=== PATIENT | female | born 1945 | race Caucasian/White ===

== ENCOUNTER 2023-06-08 19:58 | Inpatient (IN) | payer MEDICARE, OTHER, SELFPAY ==
[2023-06-08] VITALS (12 sets, daily range): BP systolic 130–152; BP diastolic 54–90; BMI 32.3
[2023-06-08 17:09] LABS: % Basophils 0.4 % (0-2); % Eosinophils 1.3 % (0-6); % Immature Granulocytes 0.5 % (0-0.5); % Neutrophils 71.8 % (42.2-75.2); Absolute Eosinophils 0.1 10^3/uL (0-0.7); Absolute Immature Granulocytes 0.1 10^3/uL (0-0.05); Absolute Lymphocytes 2.1 10^3/uL (1.2-3.4); Absolute Monocytes 0.8 10^3/uL (0.1-0.6); Hematocrit 41.3 % (37.0-47.0); Hemoglobin 14.1 g/dL (12.0-16.0); Mean Corp Hgb Conc. 34.1 g/dL (33.0-37.0); Mean Corpuscular Hgb 31.4 pg (27.0-31.0); Mean Platelet Volume 10.7 fL (7.4-10.4); Nucleated Red Blood Cells % 0 %; Platelet Count 367 10^3/uL (130-400); Red Blood Cell Count 4.49 10^6/uL (4.20-5.40); Red Cell Dist. Width 12.5 % (11.5-14.5); White Blood Cell Count 11.1 10^3/uL (4.8-10.8)
[2023-06-08 17:18] LABS: Lactic Acid 1.5 mmol/L (0.7-2.0)
[2023-06-08 17:30] LABS: ALT (SGPT) 21 U/L (0-35); AST (SGOT) 28 U/L (14-36); Albumin 4.4 g/dl (3.5-5.0); Alkaline Phosphatase 118 U/L (38-126); Blood Urea Nitrogen 30 mg/dl (7-17); Calcium 9.2 mg/dl (8.4-10.2); Carbon Dioxide 35 mmol/L (22-30); Glucose 114 mg/dl (70-99); Total Bilirubin 0.6 mg/dl (0.2-1.3); Total Protein 7.8 g/dl (6.3-8.2); eGFR 58.75
[2023-06-08 17:31] LABS: NT-proBNP 115 pg/ml; Troponin I < 0.012 ng/ml
[2023-06-08 17:44] LABS: Chloride 93 mmol/L (98-107); Potassium 3.8 mmol/L (3.5-5.1); Sodium 137 mmol/L (135-145)
--- NOTE | 2023-06-08 18:38 | ED.GENMED ---
History of Present Illness
General
Chief Complaint: Breathing Problem
Source: patient, spouse and physician
Exam Limitations: none
Time Seen by Provider: 06/08/23 18:00
Nursing documentation reviewed up to this point in time: agreed with
Travel History
Have you had any contact with someone who has COVID-19?: No
Do you have any symptoms of coronavirus? Fever > 100 degrees, chills, cough, shortness of breath, sore throat, loss of taste or smell, muscle aches, or headache?: No
History of Present Illness
History of Present Illness:
77-year-old female presents emergency department complaining of worsening cough and shortness of breath over the past several days. She is on 4 L oxygen at home.
Past History
Past History
ED Past Medical History: COPD, HTN and Hypercholesterolemia
ED Past Surgical History: Appendectomy
Social History
Tobacco: Former smoker
Alcohol: None
Personal:
Living: with family
Review of Systems
Review of Systems
Allergies reviewed?: Yes
All Other Systems: Not applicable
Constitutional: Reports no symptoms; Denies fever
EENT: Reports no symptoms
Respiratory: Reports cough and trouble breathing
Cardiac: Reports no symptoms
ABD/GI: Reports no symptoms
: Reports no symptoms
Musculoskeletal: Reports no symptoms
Skin: Reports no symptoms
Neurological: Reports no symptoms
Endocrine: Reports no symptoms
Hematologic/Lymphatic: Reports no symptoms
Psychiatric: Reports no symptoms
Phy Exam
Physical Exam
Physical Exam:
Physical Exam
General: Moderate respiratory distress, afebrile
Neck: supple. no meningeal signs. normal posterior pharynx
Heart: s1/s2 regular rate and rhythm, no murmur. equal radial
pulses.
HEENT: Pupils equal round reactive to light, EOMI
Lungs: Decreased breath sounds throughout, wheezing
Abdomen: normal bowel sounds. not tender. no CVAT
Neuro: alert and oriented. no focal neurological deficits cranial nerves II through XII intact
Skin: no rash
Psychiatric: well kept. interactive and cooperative
Extremities: no edema. no calf tenderness. negative homans. good distal pulses
Scores
Heart Failure Risk
Heart Failure Risk Score: Not Applicable
Course
Orders/Labs/Results
Orders:
Orders
06/08/23 16:41
Electrocardiogram (*1) Urgent
Reason for Study: Shortness of Breath
CR Chest - 2 Views Urgent
Comment:
Reason For Exam: SOB
06/08/23 16:42
EKG- Treatment ONCE
06/08/23 16:55
Complete Blood Count/With Diff Urgent
Comprehensive Metabolic Panel Urgent
Lactic Acid Urgent
NT-proBNP Urgent
Troponin I Urgent
Blood Culture Urgent
INDY Source: Blood/Venous
Specimen Description:
Influenza A+B Rapid Molecular Urgent
INDY Source: Nasal Swab
Specimen Description:
06/08/23 18:36
Dexamethasone Sod Phosphate [Decadron] 10 mg IV NOW STA
Ipratropium/Albuterol Sulfate [Duoneb] 3 ml INH R NOW STA
Abnormal Lab Results
06/08/23
16:55
WBC 11.1 H 10^3/uL
(4.8-10.8)
MCH 31.4 H pg
(27.0-31.0)
MPV 10.7 H fL
(7.4-10.4)
Abs Immat Gran (auto) 0.1 H 10^3/uL
(0-0.05)
Absolute Neuts (auto) 8.0 H 10^3/uL
(1.4-6.5)
Absolute Monos (auto) 0.8 H 10^3/uL
(0.1-0.6)
Lymphocytes % 19.0 L %
(20.5-51.1)
Chloride 93 L mmol/L
(98-107)
Carbon Dioxide 35 H mmol/L
(22-30)
BUN 30 H mg/dl
(7-17)
Glucose 114 H mg/dl
(70-99)
06/08/23 16:55
06/08/23 16:55
Vital Signs
Initial and Last Documented VS:
Initial Vital Signs
Temp Pulse Resp BP Pulse Ox
98.3 F 85 20 139/75 88
06/08/23 16:37 06/08/23 16:37 06/08/23 16:37 06/08/23 16:37 06/08/23 16:37
Last Documented Vital Signs
Temp Pulse Resp BP Pulse Ox
98.3 F 85 20 139/75 88
06/08/23 16:37 06/08/23 16:37 06/08/23 16:37 06/08/23 16:37 06/08/23 16:37
MDM/Problems Addressed
Differential Diagnosis Includes:
Pneumonia, COPD exacerbation, bronchitis
MDM/Problems Addressed:
77-year-old female with COPD exacerbation, no signs of pneumonia. Do not suspect PE. Admit to hospitalist. IV Decadron and DuoNeb given.
Chronic conditions affecting care: COPD
Acute Exacerbation and/or Progression of Chronic Illness: COPD
*Radiology
Radiology exam reviewed: radiology read reviewed (Chest x-ray no acute findings)
*Pulse Oximetry
Patient hypoxic: yes
*EKG
Interpreted by ED Provider?: Yes
EKG Intrepretation Date: 06/08/23
EKG Intrepretation Time: 16:47
Interpretation: abnormal
Comparison EKG: no comparison EKG present
Heart Rate: 78
Rate: normal
Rhythm: sinus
[place]: left axis deviation
Interval: normal interval
QRS Pattern: normal QRS
Ischemia: no ischemia
*[employer] Interpretation
Rate: normal
Interpretation: normal
Heart Rate: 75
Rhythm: sinus
*Critical Care Note
Total Time (30-74mins, 75-104mins- exclusive of procedures): Not Applicable
Patient Management
Social determinants of health affecting care: Living situation and Strong social support
Discussion with other providers: Hospitalist
Escalation/DeEscalation of care consider admission/obs:
Admit indicated
ED Attending Note
-
Portions of this chart may have been created with voice recognition software.� Occasional wrong word or��sound alike� substitutions may have occurred due to the inherent limitations of voice recognition software.
Discharge Plan
Departure
Patient Disposition: Admit
Date of Disposition: 06/08/23
Time of Disposition: 18:49
Admit to: Telemetry
Presentation/result/management discussed w/ accepting MD/DO: Hospitalist
Patient with high blood pressure during this ER visit?: Yes
Condition: Fair
Discharge Problem:
Acute exacerbation of chronic obstructive pulmonary disease
Interventions
Interventions:
*Risk Screen - Suicide Last Done: 06/08/23 16:37
*General Assessment Last Done: 06/08/23 16:37
[2023-06-08] MEDS: DUONEB 3 ML INH ×2 (19:15→21:53)
[2023-06-08] MEDS: DECADRON 10 MG IV (19:15)
--- NOTE | 2023-06-08 19:24 | HPS.HSE ---
Family Physician
-
Family Physician: Alex Mallory
Chief Complaint
-
shortness of breath
History of Present Illness
77-year-old female past medical history of COPD on 4 L at baseline, alpha-1 antitrypsin deficiency, hypertension, hypercholesterolemia presenting with worsening productive cough and shortness of breath over the past week. Denies any chest pain.
She denies any fevers or chills. She states that one of her inhalers was recently removed due to overlap with [employer].
She is a former smoker. She drinks 2 to 3 glasses of wine every night but has not had a drink in a few days.
Medical History
Past Medical History
Past Medical History: Reports Other ( COPD on 4 L at baseline, alpha-1 antitrypsin deficiency, hypertension, hypercholesterolemia )
Past Surgical History: Reports None
Social History
Tobacco: Former Smoker
Alcohol: None
Drug: None
Family History
Family History: Not pertinent
Allergies / Home Medications
Allergies reflects when Allergies were last updated in [facility].
Home Medications with original date entered in [facility]
Allergy/Medication List:
Allergies
Allergy/AdvReac Type Severity Reaction Status Date / Time
erythromycin base Allergy Nausea Verified 06/08/23 16:37
Home Medications
albuterol sulfate 90 mcg/actuation aerosol inhaler 2 puff inhalation R Q1 06/08/23
alpha-1 proteinase inhib.(hum) 1 gram/50 mL(2 %) intravenous soln (Glassia) 5.418 g IV TH 06/08/23
budesonide 160 mcg-glycopyr 9 mcg-formot 4.8 mcg/actuation HFA inhaler (Breztri [employer]) 2 inh inhalation R BID 06/08/23
citalopram 20 mg tablet 20 mg PO DAILY 06/08/23
clobetasol 0.05 % lotion 1 applic topical WEEKLY 06/08/23
diphenhydramine HCl 50 mg/50 mL in 0.9 % sodium chloride IV piggyback 50 mg IV TH 06/08/23
donepezil 10 mg tablet 10 mg PO HS 06/08/23
ibuprofen 600 mg tablet 600 mg PO Q8H PRN mild pain 06/08/23
lisinopril 10 mg-hydrochlorothiazide 12.5 mg tablet 1 tab PO DAILY 06/08/23
lorazepam 0.5 mg tablet 0.5 mg PO DAILY PRN anxiety 06/08/23
pantoprazole 40 mg tablet,delayed release 40 mg PO DAILY 06/08/23
paroxetine HCl 20 mg tablet 20 mg PO DAILY 06/08/23
promethazine-DM 6.25 mg-15 mg/5 mL oral syrup 5 ml PO QID PRN cough 06/08/23
simvastatin 40 mg tablet 40 mg PO QPM 06/08/23
Review of Systems
-
History Source: Patient
A 12 point ROS was completed and negative except as noted: Yes
Constitutional: Reports No Symptoms
EENT: Reports No Symptoms
Respiratory: Reports See HPI
Cardiac: Reports No Symptoms
Abdomen/GI: Reports No Symptoms
: Reports No Symptoms
Musculoskeletal: Reports No Symptoms
Skin: Reports No Symptoms
Neurological: Reports No Symptoms
Endocrine: Reports No Symptoms
Hematologic/Lymphatic: Reports No Symptoms
Psych: Reports No Symptoms
Physical Exam
Vital Signs
Vital Signs
Temp Pulse Resp BP Pulse Ox
98.1 F 72 24 142/90 94
06/08/23 19:14 06/08/23 19:14 06/08/23 19:14 06/08/23 19:14 06/08/23 19:14
Physical Exam
General: Well Developed, Well Nourished and No Apparent Distress
HEENT: NormoCephalic, Moist mucous membranes and Atraumatic
Respiratory: Wheezes
Cardiac: S1/S2 and Regular Rhythm; No Murmur or Rub
GI: Soft, Non Tender, Non Distended and Normal Bowel Sounds; No Organomegaly
Rectal: Deferred by Provider
Musculoskeletal: No Clubbing, No Cyanosis and No Edema
Skin: No Rash
Neuro: Nonfocal/grossly intact
Laboratory Results
-
06/08/23 16:55
06/08/23 16:55
Laboratory Results
Lactic Acid 1.5 mmol/L (0.7-2.0) 06/08/23 16:55
Total Bilirubin 0.6 mg/dl (0.2-1.3) 06/08/23 16:55
AST 28 U/L (14-36) 06/08/23 16:55
ALT 21 U/L (0-35) 06/08/23 16:55
Alkaline Phosphatase 118 U/L (38-126) 06/08/23 16:55
Troponin I < 0.012 ng/ml 06/08/23 16:55
Data Reviewed
-
Lab Data: Labs Reviewed by me
Old Records: Reviewed
Impression/Plan
-
IMPRESSION:
PLAN:
# COPD exacerbation
# History of alpha-1 antitrypsin deficiency
# Former smoker
-Chest x-ray negative
-DuoNebs every 6 hours
-Dexamethasone 4 mg every 8 hours
-Doxycycline
-Mucinex as needed
Essential hypertension
-Continue lisinopril/hydrochlorothiazide
Hypercholesterolemia
-Continue statin
Anxiety/depression
-Continue citalopram
-Continue Ativan as needed
Dementia
-Continue donepezil
GERD
-Continue Protonix
Full code
DVT prophylaxis�heparin
Regular diet
[2023-06-08] MEDS: HEPARIN 5000 UNITS SC (21:56)
[2023-06-08] MEDS: MUCINEX 1200 MG PO (22:36)
[2023-06-08] MEDS: VIBRAMYCIN 100 MG PO (22:36)
[2023-06-08] MEDS: SYMBICORT 160/4.5 MCG INHALER INH (23:41)
[2023-06-09] VITALS (23 sets, daily range): BP systolic 83–153; BP diastolic 50–95; BMI 31.2; BMI 31.5
[2023-06-09] MEDS: ARICEPT PO (00:48)
[2023-06-09] MEDS: ATIVAN 0.5 MG PO ×2 (00:49→21:18)
[2023-06-09] MEDS: DECADRON 4 MG IV ×3 (03:48→20:22)
--- NOTE | 2023-06-09 04:20 | PTCARENOTE ---
No acute events overnight. Received patient from the ED on home 4 liters 02.
[2023-06-09] MEDS: DUONEB 3 ML INH ×5 (04:59→19:53)
[2023-06-09] MEDS: SPIRIVA RESPIMAT 2.5 MCG 2 PUFF INH (07:58)
[2023-06-09] MEDS: SYMBICORT 160/4.5 MCG INHALER 2 PUFF INH ×2 (07:58→19:54)
[2023-06-09] MEDS: VIBRAMYCIN 100 MG PO ×2 (09:32→20:22)
[2023-06-09] MEDS: ZESTRIL 10 MG PO (09:32)
[2023-06-09] MEDS: MOTRIN 600 MG PO (09:32)
[2023-06-09] MEDS: ORETIC 12.5 MG PO (09:33)
[2023-06-09] MEDS: MUCINEX 1200 MG PO ×2 (09:34→20:22)
[2023-06-09] MEDS: HEPARIN 5000 UNITS SC ×2 (09:34→20:22)
[2023-06-09] MEDS: CELEXA 20 MG PO (09:34)
[2023-06-09] MEDS: PROTONIX 40 MG PO (09:34)
--- NOTE | 2023-06-09 09:42 | PTCARENOTE ---
Tele alarming sao2 80s- found pt distressed 'help me I can't breathe' pox dropped to 70% coughing continuously- bringing very little phlegm up- increased NC to 6L - RT called- no response to pox placed NRB mask and within 2 minutes pox back up to
100%.
Happened again within 10 minutes and again recovered with NRB mask within a minute.
--- NOTE | 2023-06-09 10:06 | W.PN.HOSP.TC ---
Today's Communication/Plan
-
see A/P
Assessment / Plan
Assessment / Plan
77-year-old female past medical history of COPD on 4 L at baseline, alpha-1 antitrypsin deficiency, hypertension, hypercholesterolemia presented with worsening productive cough and shortness of breath over the past week.� Denied to chest pain,
fevers or chills.� She states that one of her inhalers was recently removed due to overlap with [email or web address].
She is a former smoker.� She drinks 2 to 3 glasses of wine every night but has not had a drink in a few days.
A/P:
# COPD exacerbation
# Acute on chronic hypoxic resp failure
# History of alpha-1 antitrypsin deficiency
# Former smoker
Pt placed on 15L NC, cont O2 support, was on 4L NC at home
Chest x-ray negative
DuoNebs every 6 hours
Dexamethasone 4 mg every 8 hours
Check procal, check COVID and add IV Abx if elevated
Flu is negative
pt was started with Doxycycline, cont for now
Mucinex as needed, added tessalon PRN for cough
Pulm CS
# Essential hypertension
Continue lisinopril/hydrochlorothiazide
Monitor BP
# Hypercholesterolemia
Continue statin
# Anxiety/depression
Continue citalopram
Continue Ativan as needed
# Dementia
Continue donepezil
# GERD
Continue Protonix
Full code
DVT prophylaxis�heparin
Regular diet
DW RN
Anticipated Discharge: > 48 hours
Subjective/Interval History
-
Date of Service: June 09, 2023
Objective Data
-
Vital Signs:
Vital Signs
Temp Pulse Resp BP Pulse Ox
36.5 C 82 18 113/80 91
06/09/23 08:00 06/09/23 08:02 06/09/23 08:02 06/09/23 09:32 06/09/23 08:02
Review of Systems
-
Respiratory: Reports Cough and Trouble Breathing
Physical Exam
-
General: Well Developed, Well Nourished, Comfortable, Respiratory Distress and Conversant (speak in full sentences)
HEENT: Normocephalic, Atraumatic, Nose Appears Normal, Ears Appear Normal and Oxygen (15L NC)
Respiratory: Clear to Auscultation, Wheezes and Non Labored Respirations; Negative Accessory Resp Muscle Use
Cardiac: Regular Rhythm and S1/S2
GI: Soft, Nontender, Nondistended and Normal Bowel Sounds
Skin: Warm and Dry
Neuro: Awake and Alert
Psych: Calm and Intact Judgement/Insight (somewhat)
Data Reviewed
-
Diagnostic Radiology: Image personally visualized and interpreted and Report Reviewed by me
Labs: Labs Reviewed by me
[2023-06-09 11:13] LABS: COVID-19 Antigen Negative (Negative)
[2023-06-09 11:43] LABS: Procalcitonin < 0.05 ng/ml (0.0-0.25)
--- NOTE | 2023-06-09 16:11 | CM ---
Patient with Hx alpha-1 antitrypsin deficiency with Dx COPD exacerbation, Acute on chronic hypoxic resp failure. O2 6L. Receiving IV Decadron.
Met with patient and spoke with Zain by phone;
the patient resides with her and their dog in a split level house, with 4 [address] and 6 steps to bedroom.
The patient is assisted with ADLs by her for showering, and she stays in her pajamas all day.
She is ambulatory for short distances without using an assistive device - patient says walking is limited by SOB.
Patient is essentially homebound however takes her to [facility] in [place] every for a [facility].
DME - RW, home O2 through [employer]: concentrator, portable tank on wheels, POC shoulder tank
No prior VN or SNF.
PCP - Alex Mallory
Pharmacy - [facility]
The patient has 4 children who live nearby. She has no POA.
Patient requesting w/c - if MD agrees order through [employer] [facility].
Patient interested in having VN.
Patient would benefit from PT/OT Evals---> message to Dr Estrella.
Plan follow up after PT/OT Evals.
Plan order w/c.
Plan probable referral to [facility] once therapy needs are known.
[2023-06-09] MEDS: TESSALON PERLES 200 MG PO ×2 (16:12→21:18)
[2023-06-09] MEDS: LIPITOR 20 MG PO (18:04)
[2023-06-09] MEDS: ARICEPT 10 MG PO (21:18)
[2023-06-10] VITALS (13 sets, daily range): BP systolic 113–156; BP diastolic 55–87
[2023-06-10] MEDS: DECADRON 4 MG IV ×3 (04:17→20:38)
[2023-06-10 04:35] LABS: Hematocrit 38.8 % (37.0-47.0); Hemoglobin 12.9 g/dL (12.0-16.0); Mean Corp Hgb Conc. 33.2 g/dL (33.0-37.0); Mean Corpuscular Hgb 30.8 pg (27.0-31.0); Mean Corpuscular Volume 92.6 fL (81.0-99.0); Mean Platelet Volume 10.9 fL (7.4-10.4); Platelet Count 336 10^3/uL (130-400); Red Blood Cell Count 4.19 10^6/uL (4.20-5.40); Red Cell Dist. Width 12.3 % (11.5-14.5); White Blood Cell Count 12.8 10^3/uL (4.8-10.8)
[2023-06-10 05:09] LABS: Blood Urea Nitrogen 39 mg/dl (7-17); Calcium 9.3 mg/dl (8.4-10.2); Carbon Dioxide 34 mmol/L (22-30); Chloride 99 mmol/L (98-107); Estimated Creatinine Clearance 68 ml/min; Glucose 161 mg/dl (70-99); Potassium 4.4 mmol/L (3.5-5.1); Sodium 137 mmol/L (135-145); eGFR > 60.00
--- NOTE | 2023-06-10 06:14 | PTCARENOTE ---
No acute events overnight. Remains on 6 liters NC.
[2023-06-10] MEDS: DUONEB 3 ML INH ×4 (07:26→19:29)
[2023-06-10] MEDS: SYMBICORT 160/4.5 MCG INHALER 2 PUFF INH ×2 (07:26→19:29)
[2023-06-10] MEDS: MUCINEX 1200 MG PO ×2 (09:06→20:37)
[2023-06-10] MEDS: VIBRAMYCIN 100 MG PO ×2 (09:07→20:37)
[2023-06-10] MEDS: CELEXA 20 MG PO (09:07)
[2023-06-10] MEDS: ZESTRIL 10 MG PO (09:07)
[2023-06-10] MEDS: ORETIC 12.5 MG PO (09:07)
[2023-06-10] MEDS: HEPARIN 5000 UNITS SC ×2 (09:07→20:37)
[2023-06-10] MEDS: TESSALON PERLES 200 MG PO ×2 (09:07→21:34)
[2023-06-10] MEDS: PROTONIX 40 MG PO (09:07)
[2023-06-10] MEDS: MOTRIN 600 MG PO (09:08)
--- NOTE | 2023-06-10 14:30 | CON.PUL ---
Consultation
Consultation Request
Date/Time Consultation Requested: 06/10/2023
Date/Time Consultation Performed: 06/10/2023
Requesting Provider: Dr. Estrella
Performing Provider: Dr. Edinson Sanchez
Reason for Consultation: Acute exacerbation of COPD
Medical History
-
History of Present Illness:
77-year-old female with past medical history of COPD, chronic hypoxemic respiratory failure on 4 L, alpha-1 antitrypsin deficiency, hypertension, hypercholesterolemia came to the hospital with worsening productive cough, worsening shortness of
breath over the course of 1 week. Denies any fevers, chills or hemoptysis. Denies exertional chest pain. Currently on BREZTRI.
Past Medical History
Past Medical History: Other (See assessment and plan section)
Social History
Tobacco: Former Smoker
Alcohol: None
Drug: None
Family History
Family History: Reviewed & Not Pertinent
Allergies / Home Medications
Allergies
Allergy/AdvReac Type Severity Reaction Status Date / Time
erythromycin base Allergy Nausea Verified 06/08/23 16:37
Home Medications
Medication Instructions Recorded Confirmed Last Taken Type
albuterol sulfate 90 mcg/actuation 2 puff inhalation R Q1 06/08/23 06/08/23 06/08/23 History
aerosol inhaler Lung/Breathing Issues
alpha-1 proteinase inhib.(hum) 1 5.418 g IV TH alpha 1 anti-trypsin 06/08/23 06/08/23 Unknown History
gram/50 mL(2 %) intravenous soln deficiency
(Glassia)
budesonide 160 mcg-glycopyr 9 2 inh inhalation R BID 06/08/23 06/08/23 06/08/23 History
mcg-formot 4.8 mcg/actuation HFA Lung/Breathing Issues
inhaler (Breztri [employer])
citalopram 20 mg tablet 20 mg PO DAILY Mental 06/08/23 06/08/23 06/08/23 History
Health/Anxiety
clobetasol 0.05 % lotion 1 applic topical WEEKLY Skin Issues 06/08/23 06/08/23 Unknown History
diphenhydramine HCl 50 mg/50 mL in 50 mg IV TH inflammation 06/08/23 06/08/23 Unknown History
0.9 % sodium chloride IV piggyback
donepezil 10 mg tablet 10 mg PO HS Neurological Condition 06/08/23 06/08/23 06/07/23 History
ibuprofen 600 mg tablet 600 mg PO Q8H PRN mild pain 06/08/23 06/08/23 Unknown History
lisinopril 10 1 tab PO DAILY Blood Pressure 06/08/23 06/08/23 06/08/23 History
mg-hydrochlorothiazide 12.5 mg
tablet
lorazepam 0.5 mg tablet 0.5 mg PO DAILY PRN anxiety 06/08/23 06/08/23 Unknown History
pantoprazole 40 mg tablet,delayed 40 mg PO DAILY Gastrointestinal 06/08/23 06/08/23 06/08/23 History
release Issue
paroxetine HCl 20 mg tablet 20 mg PO DAILY Mental Health 06/08/23 06/08/23 Unknown History
promethazine-DM 6.25 mg-15 mg/5 mL 5 ml PO QID PRN cough 06/08/23 06/08/23 Unknown History
oral syrup
simvastatin 40 mg tablet 40 mg PO QPM High Cholesterol 06/08/23 06/08/23 06/07/23 History
Review of Systems
-
History Source: Patient
All other systems: Negative unless noted
Vitals / Labs / Diagnostic Testing
Vital Signs
Temp Pulse Resp BP Pulse Ox
97.7 F 70 19 133/59 97
06/10/23 07:55 06/10/23 12:11 06/10/23 12:11 06/10/23 12:11 06/10/23 12:11
Lab Data
06/10/23 04:16
06/10/23 04:16
Microbiology
06/08/23 16:55 Blood/Venous Blood Culture - Preliminary
No Growth in 24 hours- Final report to follow
06/08/23 16:55 Nasal Swab Influenza Types A & B (IRENA) - Final
Negative for Influenza A & B, NAAT
Negative results must be combined with clinical observations
and patient history.
Nucleic Acid Amplification test (NAAT)performed on the
[employer] platform.
Diagnostic Testing:
Physical Exam
-
HEENT: Normocephalic
Cardiovascular: S1/S2
Respiratory: Wheeze
GI: Soft and Non Distended
Neurology: Awake, Alert and Oriented
Skin: Warm
General: Respiratory Distress (n)
Assessment
-
Acute exacerbation of COPD-acute tracheobronchitis
Chest x-ray 06/08/2023: Reviewed, showed no acute abnormalities.
Negative influenza/negative COVID
Normal procalcitonin
Normal troponins as well as proBNP.
-
COPD
Chronic respiratory failure with hypoxemia up to 4 L
Alpha-1 antitrypsin deficiency on augmentation
Hypercholesterolemia
Hypertension
Anxiety/depression
Dementia
GERD
-
Assessment and plan:
Clinical picture consistent with acute exacerbation of COPD: Possibly infectious.
Continue with current care:
IV corticosteroids
Nebulizers
Okay to use 5 days of antibiotics for bronchitis
Obtain sputum culture
Continue oxygen supplementation-up to 15 L nasal cannula, improving down to 6 L. Usually on 4 L only.
Mucolytic's
Aspiration precautions
Acapella device
-
Monitor blood sugars on high-dose of steroids.
Insulin as needed.
-
Patient states that she would like to transfer care to [facility].
Information would left in the chart for follow-up.
-
She also states that her daughter and granddaughter have Brugada syndrome.
Her EKG showed normal sinus rhythm. Left axis deviation. No evidence for right bundle branch block or Brugada type pattern.
She will need outpatient evaluation
-
DVT prophylaxis with heparin.
--- NOTE | 2023-06-10 17:15 | W.PN.HOSP.TC ---
Today's Communication/Plan
-
see outlined plan
Assessment / Plan
Assessment / Plan
77-year-old female past medical history of COPD on 4 L at baseline, alpha-1 antitrypsin deficiency, hypertension, hypercholesterolemia presented with worsening productive cough and shortness of breath over the past week.� Denied to chest pain,
fevers or chills.� She states that one of her inhalers was recently removed due to overlap with [employer].
She is a former smoker.� She drinks 2 to 3 glasses of wine every night but has not had a drink in a few days.
Assessment:
Acute COPD exacerbation from acute tracheobronchitis
Acute on chronic hypoxic respiratory failure
History of alpha-1 antitrypsin deficiency
Former smoker
- 15L now down to 5L; baseline is 4L NC
- continue IV steroids
- nebs scheduled and prn
- doxy x 5 days; obtain sputum culture
- mucolytics, aspiration precautions, IS/Acapella
Essential hypertension
- continue lisinopril/hydrochlorothiazide
Hypercholesterolemia
- continue statin
Anxiety/depression
- continue citalopram
- continue Ativan as needed
Dementia
- continue donepezil
GERD
- continue Protonix
DVT ppx: SC heparin
Code: Full
Anticipated Discharge: > 48 hours
Subjective/Interval History
-
Date of Service: June 10, 2023
reports mild improvement in SOB
remains on 5L (baseline 4L)
Objective Data
-
Vital Signs:
Vital Signs
Temp Pulse Resp BP Pulse Ox
97.6 F 73 19 133/59 94
06/10/23 11:55 06/10/23 15:31 06/10/23 15:31 06/10/23 12:11 06/10/23 15:31
I&O
06/09/23 06/10/23 06/11/23
06:59 06:59 06:59
Intake Total 1400 / 1400 360 / 360
Output Total 1000 / 1000
Balance 400 / 400 360 / 360
Physical Exam
-
General: No Apparent Distress
HEENT: Normocephalic and Atraumatic
Respiratory: Wheezes
Cardiac: Regular Rhythm and S1/S2
GI: Soft and Nontender
Genito-urinary: No Costovertebral Tender
Neuro: AO x 3
Psych: Calm
Data Reviewed
-
Total Time Spent with Patient (in minutes): 44
Labs: Labs Reviewed by me
[2023-06-10] MEDS: LIPITOR 20 MG PO (17:28)
--- NOTE | 2023-06-10 19:14 | PTCARENOTE ---
OOB this afternoon. Several coughing episodes today however recovered on own, sao2 maintained on 5L NC. Motrin given x1 this am for headache from coughing. PRN Leopoldo lopez given x1 as well. Utilizing purewick as she has increased stress
incontinence with coughing. NO BM since prior to admit. She will try prunes on meal trays- does not usually take anything at home.
[2023-06-10] MEDS: ARICEPT 10 MG PO (20:37)
[2023-06-10] MEDS: ATIVAN 0.5 MG PO (21:34)
[2023-06-11] VITALS (22 sets, daily range): BP systolic 130–163; BP diastolic 47–103; PULSE 67–80; O2SAT 92–96
[2023-06-11] MEDS: DECADRON 4 MG IV ×3 (04:09→20:53)
[2023-06-11 04:34] LABS: % Basophils 0.1 % (0-2); % Immature Granulocytes 0.9 % (0-0.5); % Lymphocytes 10.1 % (20.5-51.1); % Monocytes 4.2 % (1.7-9.3); % Neutrophils 84.7 % (42.2-75.2); Absolute Immature Granulocytes 0.1 10^3/uL (0-0.05); Absolute Lymphocytes 1.2 10^3/uL (1.2-3.4); Absolute Monocytes 0.5 10^3/uL (0.1-0.6); Absolute Neutrophils 10.2 10^3/uL (1.4-6.5); Hemoglobin 13.3 g/dL (12.0-16.0); Mean Corp Hgb Conc. 33.3 g/dL (33.0-37.0); Mean Corpuscular Hgb 31.1 pg (27.0-31.0); Mean Corpuscular Volume 93.5 fL (81.0-99.0); Mean Platelet Volume 10.7 fL (7.4-10.4); Nucleated Red Blood Cells % 0 %; Platelet Count 331 10^3/uL (130-400); Red Blood Cell Count 4.28 10^6/uL (4.20-5.40); Red Cell Dist. Width 12.5 % (11.5-14.5); White Blood Cell Count 12.1 10^3/uL (4.8-10.8)
--- NOTE | 2023-06-11 04:41 | PTCARENOTE ---
No acute events overnight. Remains on 4 liters NC.
[2023-06-11 05:02] LABS: Blood Urea Nitrogen 36 mg/dl (7-17); Calcium 9.5 mg/dl (8.4-10.2); Carbon Dioxide 31 mmol/L (22-30); Chloride 98 mmol/L (98-107); Estimated Creatinine Clearance 78 ml/min; Glucose 143 mg/dl (70-99); Potassium 4.6 mmol/L (3.5-5.1); Sodium 137 mmol/L (135-145); eGFR > 60.00
[2023-06-11] MEDS: SYMBICORT 160/4.5 MCG INHALER 2 PUFF INH ×2 (07:30→19:36)
[2023-06-11] MEDS: DUONEB 3 ML INH ×4 (07:31→19:35)
[2023-06-11] MEDS: PROTONIX 40 MG PO (07:58)
[2023-06-11] MEDS: VIBRAMYCIN 100 MG PO ×2 (07:58→20:53)
[2023-06-11] MEDS: MUCINEX 1200 MG PO ×2 (07:58→20:52)
[2023-06-11] MEDS: ORETIC 12.5 MG PO (07:58)
[2023-06-11] MEDS: MOTRIN 600 MG PO (07:58)
[2023-06-11] MEDS: ZESTRIL 10 MG PO (07:59)
[2023-06-11] MEDS: HEPARIN 5000 UNITS SC ×2 (07:59→20:53)
[2023-06-11] MEDS: CELEXA 20 MG PO (07:59)
[2023-06-11] MEDS: TESSALON PERLES 200 MG PO ×2 (08:02→20:53)
--- NOTE | 2023-06-11 10:00 | PTCARENOTE ---
Assumed care of patient at beginning of this shift from previous RN with breathing treatment being given. Respiratory therapist then decreased oxygen from 6L n/c to 5L n/c with POx currently 97%. Patient states she uses 4L n/c at home. Lungs coarse
throughout with ins/exp wheeze. Frequent moist, harsh non-productive cough; sputum cup provided and patient instructed in need to obtain specimen. Purewick in use as patient incontinent with each frequent episode of coughing. See worklist for full
assessment and vital signs; see MAR for med administration.
--- NOTE | 2023-06-11 10:25 | W.PN.PUL3 ---
Today's Communication / Plan
-
Continue dexamethasone
Continue DuoNebs
Continue Symbicort
Continue doxycycline
Increase activity as able
Sputum culture pending
Assessment
-
Acute exacerbation of COPD-acute tracheobronchitis
Chest x-ray 06/08/2023: Reviewed, showed no acute abnormalities.
Negative influenza/negative COVID
Normal procalcitonin
Normal troponins as well as proBNP.
-
COPD
Chronic respiratory failure with hypoxemia up to 4 L
Alpha-1 antitrypsin deficiency on augmentation
Hypercholesterolemia
Hypertension
Anxiety/depression
Dementia
GERD
-
Assessment and plan:
Clinical picture consistent with acute exacerbation of COPD: Likely infectious.
Continues to be bronchospastic
Continues to have severe cough paroxysms.
Not ready for discharge or tapering steroids at this point.
-
Continue with current care:
IV corticosteroids-dexamethasone 4 mg IV every 8. Continue without change.
Nebulizers: DuoNebs.
Usually on Breztri - ok with Symbicort while in hospital.
Okay to use 5 days of antibiotics for bronchitis-doxycycline.
Obtain sputum culture-has not been able to provide.
Chronic hypoxemic respiratory failure: Usually on 4 L. Currently at baseline. Improved since admission.
Mucolytic's
Aspiration precautions
Acapella device, encourage.
Increase activity as able
-
Monitor blood sugars on high-dose of steroids.
Insulin as needed.
-
Patient states that she would like to transfer care to [facility].
Information would left in the chart for follow-up.
-
She will continue with IV infusions for alpha 1 antitrypsin augmentation in the outpatient setting.
-
She also states that her daughter and granddaughter have Brugada syndrome.
Her EKG showed normal sinus rhythm. Left axis deviation. No evidence for right bundle branch block or Brugada type pattern.
She will need outpatient evaluation
-
DVT prophylaxis with heparin.
Subjective Data
-
Date of Service:
Date of Service: June 11, 2023
Chief Complaint: Pulmonary Follow Up (Acute exacerbation of COPD/tracheobronchitis)
Review of Systems
Cardiopulmonary: Dyspnea, Cough and Chest Pain (n)
GI: Nausea (n) and Vomiting (n)
Objective Data
Data Reviewed
Vital Signs / I&O / Oxygen:
Vital Signs
Temp Pulse Resp BP Pulse Ox
97.8 F 67 16 141/53 98
06/11/23 07:55 06/11/23 09:00 06/11/23 09:00 06/11/23 09:00 06/11/23 09:02
Intake and Output
06/10/23 06/11/23 06/12/23
06:59 06:59 06:59
Intake Total 1400 / 1400 1420 / 1420
Output Total 1000 / 1000 1150 / 1150
Balance 400 / 400 270 / 270
SaO2 98
Nasal Cannula flow liters per 4
minute
Physical Exam
General: Respiratory Distress (n) and Comfortable
HEENT: Normocephalic
Cardiovascular: S1-S2
GI: Soft and Non Distended
Neurology: Awake and Alert
Skin: Warm
Labs/Micro/Reports
Lab Data
06/11/23 04:09
06/11/23 04:09
Microbiology
06/08/23 16:55 Blood/Venous Blood Culture - Preliminary
No Growth in 48 hours- Final report to follow
06/08/23 16:55 Nasal Swab Influenza Types A & B (IRENA) - Final
Negative for Influenza A & B, NAAT
Negative results must be combined with clinical observations
and patient history.
Nucleic Acid Amplification test (NAAT)performed on the
[employer] platform.
[2023-06-11] MEDS: CLARITIN 10 MG PO (12:04)
--- NOTE | 2023-06-11 14:40 | W.PN.HOSP.TC ---
Today's Communication/Plan
-
continue current plan of care
await floor transfer
Assessment / Plan
Assessment / Plan
77-year-old female past medical history of COPD on 4 L at baseline, alpha-1 antitrypsin deficiency, hypertension, hypercholesterolemia presented with worsening productive cough and shortness of breath over the past week.� Denied to chest pain,
fevers or chills.� She states that one of her inhalers was recently removed due to overlap with [employer].
She is a former smoker.� She drinks 2 to 3 glasses of wine every night but has not had a drink in a few days.
Assessment:
Acute COPD exacerbation from acute tracheobronchitis
Acute on chronic hypoxic respiratory failure
History of alpha-1 antitrypsin deficiency
Former smoker
- 15L now down to 4L; baseline is 4L NC
- continue IV steroids
- nebs scheduled and prn
- doxy x 5 days; obtain sputum culture
- mucolytics, aspiration precautions, IS/Acapella
Essential hypertension
- continue lisinopril/hydrochlorothiazide
Hypercholesterolemia
- continue statin
Anxiety/depression
- continue citalopram
- continue Ativan as needed
Dementia
- continue donepezil
GERD
- continue Protonix
DVT ppx: SC heparin
Code: Full
Anticipated Discharge: 24 - 48 hours
Subjective/Interval History
-
Date of Service: June 11, 2023
reports mild improvement
now down to 4L which is baseline
Objective Data
-
Labs:
Laboratory Results
06/11/23
04:09
WBC 12.1 H
Hgb 13.3
Hct 40.0
Plt Count 331
Sodium 137
Potassium 4.6
Chloride 98
Carbon Dioxide 31 H
BUN 36 H
Creatinine 0.7
Glucose 143 H
Calcium 9.5
Vital Signs:
Vital Signs
Temp Pulse Resp BP Pulse Ox
98.4 F 67 17 145/61 96
06/11/23 11:55 06/11/23 13:00 06/11/23 13:00 06/11/23 13:00 06/11/23 13:00
I&O
06/10/23 06/11/23 06/12/23
06:59 06:59 06:59
Intake Total 1400 / 1400 1420 / 1420
Output Total 1000 / 1000 1150 / 1150 300 / 300
Balance 400 / 400 270 / 270 -300 / -300
Physical Exam
-
General: No Apparent Distress
HEENT: Normocephalic and Atraumatic
Respiratory: Negative Wheezes or Rales
Cardiac: Regular Rhythm and S1/S2
GI: Soft
Genito-urinary: No Costovertebral Tender
Musculoskeletal: No Edema
Neuro: AO x 3
Psych: Calm
Data Reviewed
-
Total Time Spent with Patient (in minutes): 41
Labs: Labs Reviewed by me
[2023-06-11] MEDS: LIPITOR 20 MG PO (17:16)
--- NOTE | 2023-06-11 18:04 | PTCARENOTE ---
Patient to be transferred to [facility] when room is open and cleaned; report given to Cheryl who will notify this unit when room is ready. Patient and made aware of transfer.
[2023-06-11] MEDS: ARICEPT 10 MG PO (20:52)
[2023-06-11] MEDS: ATIVAN 0.5 MG PO (22:05)
[2023-06-11] MEDS: ANESTHETIC LOZENGE 1 LOZENGE PO (22:49)
[2023-06-12] VITALS (7 sets, daily range): BP systolic 118–166; BP diastolic 71–80
--- NOTE | 2023-06-12 00:18 | PTCARENOTE ---
Assumed care of Pt at start of shift. Pt to be transferred to [facility] on tele. Dayshift RN gave receiving nurse report. Pt was alert, pleasant, and agreeable to care. Tx pt to 3rd floor on 4L NC sating 95%, belongings sent with pt.
[2023-06-12] MEDS: TESSALON PERLES 200 MG PO ×3 (03:12→20:48)
[2023-06-12] MEDS: MOTRIN 600 MG PO ×2 (04:31→21:01)
[2023-06-12] MEDS: DECADRON 4 MG IV ×2 (04:33→12:42)
[2023-06-12 06:57] LABS: % Basophils 0.1 % (0-2); % Immature Granulocytes 1.5 % (0-0.5); % Lymphocytes 8.6 % (20.5-51.1); % Monocytes 5.3 % (1.7-9.3); % Neutrophils 84.5 % (42.2-75.2); Absolute Immature Granulocytes 0.2 10^3/uL (0-0.05); Absolute Monocytes 0.6 10^3/uL (0.1-0.6); Absolute Neutrophils 9.9 10^3/uL (1.4-6.5); Hematocrit 38.9 % (37.0-47.0); Hemoglobin 12.9 g/dL (12.0-16.0); Mean Corp Hgb Conc. 33.2 g/dL (33.0-37.0); Mean Corpuscular Hgb 30.5 pg (27.0-31.0); Mean Platelet Volume 10.7 fL (7.4-10.4); Nucleated Red Blood Cells % 0 %; Platelet Count 335 10^3/uL (130-400); Red Blood Cell Count 4.23 10^6/uL (4.20-5.40); Red Cell Dist. Width 12.5 % (11.5-14.5); White Blood Cell Count 11.7 10^3/uL (4.8-10.8)
[2023-06-12 07:20] LABS: Blood Urea Nitrogen 36 mg/dl (7-17); Calcium 9.4 mg/dl (8.4-10.2); Carbon Dioxide 34 mmol/L (22-30); Chloride 99 mmol/L (98-107); Estimated Creatinine Clearance 68 ml/min; Glucose 126 mg/dl (70-99); Potassium 4.8 mmol/L (3.5-5.1); Sodium 135 mmol/L (135-145); eGFR > 60.00
[2023-06-12] MEDS: SYMBICORT 160/4.5 MCG INHALER 2 PUFF INH ×2 (07:23→19:15)
[2023-06-12] MEDS: DUONEB 3 ML INH ×4 (07:23→19:15)
[2023-06-12] MEDS: CLARITIN 10 MG PO (10:07)
[2023-06-12] MEDS: CELEXA 20 MG PO (10:07)
[2023-06-12] MEDS: HEPARIN 5000 UNITS SC ×2 (10:08→20:48)
[2023-06-12] MEDS: MUCINEX 1200 MG PO ×2 (10:10→20:44)
[2023-06-12] MEDS: PROTONIX 40 MG PO (10:12)
[2023-06-12] MEDS: ORETIC 12.5 MG PO (10:12)
[2023-06-12] MEDS: VIBRAMYCIN 100 MG PO ×2 (10:13→20:44)
[2023-06-12] MEDS: ZESTRIL 10 MG PO (10:14)
--- NOTE | 2023-06-12 12:13 | CM ---
Reviewed chart, patient near baseline level of functioning. Will still most likely go home.
Plan: Case management will continue to follow and assist with discharge planning. Patient will return home when medically cleared.
[2023-06-12] MEDS: FLUSH (NSS) 1 FLUSH IV (12:43)
--- NOTE | 2023-06-12 13:41 | W.PN.HOSP.TC ---
Today's Communication/Plan
-
continue IV steroids
encourage expectoration with mucolytics
OOBTC/PT/OT
Assessment / Plan
Assessment / Plan
77-year-old female past medical history of COPD on 4 L at baseline, alpha-1 antitrypsin deficiency, hypertension, hypercholesterolemia presented with worsening productive cough and shortness of breath over the past week.� Denied to chest pain,
fevers or chills.� She states that one of her inhalers was recently removed due to overlap with [employer].
She is a former smoker.� She drinks 2 to 3 glasses of wine every night but has not had a drink in a few days.
Assessment:
Acute COPD exacerbation from acute tracheobronchitis
Acute on chronic hypoxic respiratory failure
History of alpha-1 antitrypsin deficiency
Former smoker
- 15L now down to 4L; baseline is 4L NC
- continue IV steroids per Pulmonary
- nebs scheduled and prn
- doxy x 4/5
- mucolytics, aspiration precautions, IS/Acapella
Essential hypertension
- continue lisinopril/hydrochlorothiazide
Hypercholesterolemia
- continue statin
Anxiety/depression
- continue citalopram
- continue Ativan as needed
Dementia
- continue donepezil
GERD
- continue Protonix
DVT ppx: SC heparin
Code: Full
Anticipated Discharge: 24 - 48 hours
Subjective/Interval History
-
Date of Service: June 12, 2023
reports coughing and bringing up clear sputum
remains with slight wheeze, states she is not ready for DC yet
Objective Data
-
Labs:
Laboratory Results
06/12/23
06:31
WBC 11.7 H
Hgb 12.9
Hct 38.9
Plt Count 335
Sodium 135
Potassium 4.8
Chloride 99
Carbon Dioxide 34 H
BUN 36 H
Creatinine 0.8
Glucose 126 H
Calcium 9.4
Vital Signs:
Vital Signs
Temp Pulse Resp BP Pulse Ox
98.6 F 63 18 166/75 97
06/12/23 11:04 06/12/23 11:04 06/12/23 11:04 06/12/23 11:04 06/12/23 11:04
I&O
06/11/23 06/12/23 06/13/23
06:59 06:59 06:59
Intake Total 1420 / 1420 240 / 240
Output Total 1150 / 1150 600 / 600
Balance 270 / 270 -360 / -360
Physical Exam
-
General: No Apparent Distress
HEENT: Normocephalic and Atraumatic
Respiratory: Wheezes; Negative Rales
Cardiac: Regular Rhythm and S1/S2
GI: Soft
Genito-urinary: No Costovertebral Tender
Musculoskeletal: No Edema
Neuro: AO x 3
Hematologic / Lymphatic: No Lymphadenopathy
Psych: Calm
Data Reviewed
-
Total Time Spent with Patient (in minutes): 45
Labs: Labs Reviewed by me
--- NOTE | 2023-06-12 14:57 | PN.CDI ---
CDI
- -
CDI:
Physician Documentation Request
Admit Date: 06/08/23 19:58
Dear Doctor Xochilt,
Please review the following and provide your response in the progress notes.
Clinical Indicators:
Travel Administrator,
#Pt meets criteria for mild protein calorie malnutrition of acute illness
#...with sudden weight loss just prior to admission and
#...sudden poor intake just prior to admission </= 75% x 5 days. Continue liberal diet.
Based on the above documentation and your clinical assessment, please clarify which of the following most accurately represents the patient's nutritional status?
Mild Protein Calorie Malnutrition of acute illness
Other (please specify)
[place] Criteria ([facility] Hospitalist 2017)
2 or more criteria must be present for either
non severe or severe malnutrition
Note that the criteria differs related to the
presence of an acute or chronic illness
Acute Illness
Energy Intake Non Severe: <75% for >7 days
Severe: <50% for >5 days
Weight Loss Non Severe: 1-2% over 1 week
5% over 1 month
7.5% over 3 months
1 year N/A
Severe: >2% over 1 week
>5% over 1 month
>7.5% over 3 months
1 year N/A
Use of terms such as suspected, likely, concern for, or probable (associated with a specific diagnosis that is being evaluated, monitored, or treated as if it exists) are acceptable and can be coded in the inpatient setting, when documented at the
time of discharge.
Thank you,
Asha Beasley RN BSN CCDS
CDI Specialist
please contact via tiger text
Please use your independent medical judgment in providing your response.
--- NOTE | 2023-06-12 15:15 | W.PN.PUL3 ---
Today's Communication / Plan
-
Decrease IV steroids
Continue nebulizer therapy
Continue antibiotics
Continue oxygen therapy
Secretion clearance interventions
Hopefully discharge in the next 48 hours if continues to improve
Assessment
-
77-year-old with history of COPD, alpha-1 antitrypsin deficiency, not followed in our office. Came with shortness of breath, wheezing and chest congestion. Consistent with acute exacerbation of COPD.
Acute exacerbation of COPD-acute tracheobronchitis
Chest x-ray 06/08/2023: Reviewed, showed no acute abnormalities.
Negative influenza/negative COVID
Normal procalcitonin
Normal troponins as well as proBNP.
-
COPD
Chronic respiratory failure with hypoxemia up to 4 L
Alpha-1 antitrypsin deficiency on augmentation
Hypercholesterolemia
Hypertension
Anxiety/depression
Dementia
GERD
-
Assessment and plan:
-
Clinical picture consistent with acute exacerbation of COPD: Likely infectious.
Bronchospasm improved. Still persistent.
Continues to have severe cough paroxysms.
Not ready for discharge or tapering steroids at this point.
-
Continue with current care:
IV corticosteroids-dexamethasone 4 mg IV every 8. Will start tapering tomorrow 06/13/2023 if improved.
Nebulizers: DuoNebs.
Usually on Breztri - ok with Symbicort while in hospital.
Continue 5 days of antibiotics for bronchitis-doxycycline.
Obtain sputum culture-has not been able to provide.
Influenza negative
COVID-negative
Chronic hypoxemic respiratory failure: Usually on 4 L. Currently at baseline. Improved since admission.
Mucolytic's
Aspiration precautions
Acapella device, encourage.
Increase activity as able
-
Monitor blood sugars on high-dose of steroids.
Insulin as needed.
-
Patient states that she would like to transfer care to [facility].
Information would left in the chart for follow-up.
-
She will continue with IV infusions for alpha 1 antitrypsin augmentation in the outpatient setting.
-
She also states that her daughter and granddaughter have Brugada syndrome.
Her EKG showed normal sinus rhythm. Left axis deviation. No evidence for right bundle branch block or Brugada type pattern.
She will need outpatient evaluation
-
DVT prophylaxis with heparin.
Hopefully discharge in the next 48 hours if she continues to improve.-
Subjective Data
-
Date of Service:
Date of Service: June 12, 2023
Chief Complaint: Pulmonary Follow Up (Acute exacerbation of COPD/tracheobronchitis)
Subjective:
Continues to be bronchospastic, complaining of cough)
Overall is slowly improving
Denies hemoptysis or purulent sputum production.
Review of Systems
General: Fever (n)
Cardiopulmonary: Dyspnea (none at rest) and Dyspnea on Exertion (Improved)
GI: Abdominal Pain (n) and Nausea (n)
Objective Data
Data Reviewed
Vital Signs / I&O / Oxygen:
Vital Signs
Temp Pulse Resp BP Pulse Ox
98.0 F 67 20 153/71 96
06/12/23 14:39 06/12/23 14:39 06/12/23 14:39 06/12/23 14:39 06/12/23 14:39
Intake and Output
06/11/23 06/12/23 06/13/23
06:59 06:59 06:59
Intake Total 1420 / 1420 240 / 240
Output Total 1150 / 1150 600 / 600
Balance 270 / 270 -360 / -360
SaO2 96
Nasal Cannula flow liters per 4.0
minute
Physical Exam
General: Respiratory Distress (n) and Comfortable
HEENT: Normocephalic
Cardiovascular: S1-S2
Respiratory: Wheeze (Expiratory bilateral, improved air movement)
GI: Soft and Non Distended
Neurology: Awake and Alert
Skin: Warm
Labs/Micro/Reports
Lab Data
06/12/23 06:31
06/12/23 06:31
Microbiology
06/08/23 16:55 Blood/Venous Blood Culture - Preliminary
No Growth in 72 hours- Final report to follow
[2023-06-12] MEDS: LIPITOR 20 MG PO (17:17)
[2023-06-12] MEDS: ARICEPT 10 MG PO (20:44)
[2023-06-12] MEDS: DECADRON 2 MG IV (20:48)
[2023-06-12] MEDS: ATIVAN 0.5 MG PO (20:48)
[2023-06-13 00:20] VITALS: BP 146/72
[2023-06-13 03:47] VITALS: BP 165/71
[2023-06-13] MEDS: DECADRON 2 MG IV ×4 (04:38→23:46)
[2023-06-13 07:37] LABS: % Basophils 0.2 % (0-2); % Immature Granulocytes 1.4 % (0-0.5); % Lymphocytes 10.7 % (20.5-51.1); % Monocytes 5.9 % (1.7-9.3); % Neutrophils 81.8 % (42.2-75.2); Absolute Immature Granulocytes 0.2 10^3/uL (0-0.05); Absolute Lymphocytes 1.3 10^3/uL (1.2-3.4); Absolute Monocytes 0.7 10^3/uL (0.1-0.6); Absolute Neutrophils 10.1 10^3/uL (1.4-6.5); Hematocrit 42.3 % (37.0-47.0); Hemoglobin 13.9 g/dL (12.0-16.0); Mean Corp Hgb Conc. 32.9 g/dL (33.0-37.0); Mean Corpuscular Volume 94.2 fL (81.0-99.0); Mean Platelet Volume 10.9 fL (7.4-10.4); Nucleated Red Blood Cells % 0 %; Platelet Count 338 10^3/uL (130-400); Red Blood Cell Count 4.49 10^6/uL (4.20-5.40); Red Cell Dist. Width 12.7 % (11.5-14.5); White Blood Cell Count 12.3 10^3/uL (4.8-10.8)
[2023-06-13] MEDS: DUONEB 3 ML INH ×3 (07:42→18:24)
[2023-06-13] MEDS: SYMBICORT 160/4.5 MCG INHALER 2 PUFF INH ×2 (07:42→18:25)
[2023-06-13 07:52] VITALS: BP 175/95
[2023-06-13 08:02] LABS: Blood Urea Nitrogen 45 mg/dl (7-17); Calcium 9.6 mg/dl (8.4-10.2); Carbon Dioxide 35 mmol/L (22-30); Chloride 96 mmol/L (98-107); Estimated Creatinine Clearance 68 ml/min; Glucose 119 mg/dl (70-99); Potassium 4.8 mmol/L (3.5-5.1); Sodium 136 mmol/L (135-145); eGFR > 60.00
[2023-06-13] MEDS: CLARITIN 10 MG PO (08:14)
[2023-06-13] MEDS: CELEXA 20 MG PO (08:14)
[2023-06-13] MEDS: VIBRAMYCIN 100 MG PO ×2 (08:14→20:42)
[2023-06-13] MEDS: MUCINEX 1200 MG PO (08:14)
[2023-06-13] MEDS: ORETIC 12.5 MG PO (08:15)
[2023-06-13] MEDS: ZESTRIL 10 MG PO (08:15)
[2023-06-13] MEDS: PROTONIX 40 MG PO (08:15)
[2023-06-13] MEDS: HEPARIN 5000 UNITS SC ×2 (08:16→20:42)
--- NOTE | 2023-06-13 11:28 | W.PN.HOSP.TC ---
Today's Communication/Plan
-
1 more day IV Steroids then evaluate for home tomorrow
Assessment / Plan
Assessment / Plan
77-year-old female past medical history of COPD on 4 L at baseline, alpha-1 antitrypsin deficiency, hypertension, hypercholesterolemia presented with worsening productive cough and shortness of breath over the past week.� Denied to chest pain,
fevers or chills.� She states that one of her inhalers was recently removed due to overlap with [employer].
She is a former smoker.� She drinks 2 to 3 glasses of wine every night but has not had a drink in a few days.
Assessment:
Acute COPD exacerbation from acute tracheobronchitis
Acute on chronic hypoxic respiratory failure
History of alpha-1 antitrypsin deficiency
Former smoker
- 15L now down to 4L; baseline is 4L NC
- continue IV steroids per Pulmonary
- nebs scheduled and prn
- doxy, day 08/15
- mucolytics, aspiration precautions, IS/Acapella
Essential hypertension
- continue lisinopril/hydrochlorothiazide
Hypercholesterolemia
- continue statin
Anxiety/depression
- continue citalopram
- continue Ativan as needed
Dementia
- continue donepezil
GERD
- continue Protonix
Mild Protein Calorie Malnutrition of acute illness
DVT ppx: SC heparin
Code: Full
Anticipated Discharge: Within 24 hours
Subjective/Interval History
-
Date of Service: June 13, 2023
reports ongoing marginal improvement, feels like she may be ready in 24 hours for DC
Objective Data
-
Labs:
Laboratory Results
06/13/23
07:01
WBC 12.3 H
Hgb 13.9
Hct 42.3
Plt Count 338
Sodium 136
Potassium 4.8
Chloride 96 L
Carbon Dioxide 35 H
BUN 45 H
Creatinine 0.8
Glucose 119 H
Calcium 9.6
Vital Signs:
Vital Signs
Temp Pulse Resp BP Pulse Ox
97.6 F 62 17 175/95 97
06/13/23 07:52 06/13/23 08:15 06/13/23 07:52 06/13/23 08:15 06/13/23 07:52
I&O
06/12/23 06/13/23 06/14/23
06:59 06:59 06:59
Intake Total 240 / 240 1840 / 1840
Output Total 600 / 600 800 / 800
Balance -360 / -360 1040 / 1040
Physical Exam
-
General: No Apparent Distress
HEENT: Normocephalic and Atraumatic
Respiratory: Wheezes (very faint); Negative Rales or Rhonchi
Cardiac: Regular Rhythm and S1/S2
Rectal: Brown
Genito-urinary: No Costovertebral Tender
Musculoskeletal: No Edema
Neuro: AO x 3
Psych: Calm
Data Reviewed
-
Total Time Spent with Patient (in minutes): 41
Labs: Labs Reviewed by me
--- NOTE | 2023-06-13 13:50 | CM ---
Chart reviewed. Spoke with pt
PT recs HH - discussed with pt
Requesting [facility] - referral sent via care port for home care needs
Plan - d/c to home with [facility] when medically stable
[2023-06-13] MEDS: ROBITUSSIN DM 10 ML PO (14:15)
[2023-06-13] MEDS: MOTRIN 600 MG PO (14:15)
[2023-06-13] MEDS: TESSALON PERLES 200 MG PO ×2 (14:16→20:42)
[2023-06-13] MEDS: ATIVAN 0.5 MG PO ×2 (14:16→23:46)
--- NOTE | 2023-06-13 14:28 | W.PN.PUL3 ---
Today's Communication / Plan
-
Decrease IV steroids starting tomorrow
Continue nebulizer therapy
Continue antibiotics
Continue oxygen therapy
Secretion clearance interventions
Hopefully discharge in the next 24 hours if continues to improve
Outpatient pulmonary follow-up will be arranged for the patient.
Assessment
-
77-year-old with history of COPD, alpha-1 antitrypsin deficiency, not followed in our office. Came with shortness of breath, wheezing and chest congestion. Consistent with acute exacerbation of COPD.
Acute exacerbation of COPD-acute tracheobronchitis
Chest x-ray 06/08/2023: Reviewed, showed no acute abnormalities.
Negative influenza/negative COVID
Normal procalcitonin
Normal troponins as well as proBNP.
-
COPD
Chronic respiratory failure with hypoxemia up to 4 L
Alpha-1 antitrypsin deficiency on augmentation
Hypercholesterolemia
Hypertension
Anxiety/depression
Dementia
GERD
-
Assessment and plan:
-
Clinical picture consistent with acute exacerbation of COPD: Likely infectious.
Bronchospasm improved. She is no longer wheezing as of 06/13/2023
Continues to cough with scant sputum produced
Ok to start weaning steroids now --> I will wean her decadron to 2mg IV q12hr starting tomorrow. If she feels ready to go home, then DC on prednisone 40mg daily and reduce by 10mg every 4th day until off.
-
Continue with current care:
Nebulizers: DuoNebs TID
Usually on Breztri - ok with Symbicort while in hospital.
Continue 5 days of antibiotics for bronchitis-doxycycline.
Obtain sputum culture-has not been able to provide.
Influenza negative
COVID-negative
Chronic hypoxemic respiratory failure: Usually on 4 L. Currently at baseline. Improved since admission.
Mucolytics
Aspiration precautions
Acapella device, encourage.
Increase activity as able
-
Monitor blood sugars on high-dose of steroids.
Insulin as needed.
-
Patient states that she would like to transfer care to [facility].
Information would left in the chart for follow-up.
-
She will continue with IV infusions for alpha 1 antitrypsin augmentation in the outpatient setting.
-
She also states that her daughter and granddaughter have Brugada syndrome.
Her EKG showed normal sinus rhythm. Left axis deviation. No evidence for right bundle branch block or Brugada type pattern.
She will need outpatient evaluation
-
DVT prophylaxis with heparin.
Hopefully discharge by tomorrow if she feels well on PO steroid taper as above.
Subjective Data
-
Date of Service:
Date of Service: June 13, 2023
Chief Complaint: Pulmonary Follow Up (Acute exacerbation of COPD/tracheobronchitis)
Subjective:
Patient seen and evaluated today at bedside. Still coughing up scant white phlegm. Feels anxious and according to respiratory therapy, occurred after she had received nebulizer treatment earlier today. Patient also says that getting Ativan also
helped. Currently on 4 L/min which is her home dose. She denies chest pain, headache, worsening shortness of breath, fevers or chills.
Review of Systems
General: Other (Negative unless mentioned above)
Objective Data
Data Reviewed
Vital Signs / I&O / Oxygen:
Vital Signs
Temp Pulse Resp BP Pulse Ox
98.2 F 76 18 150/66 96
06/13/23 19:10 06/13/23 19:10 06/13/23 19:10 06/13/23 19:10 06/13/23 19:10
Intake and Output
06/12/23 06/13/23 06/14/23
06:59 06:59 06:59
Intake Total 240 / 240 1840 / 1840 900 / 900
Output Total 600 / 600 800 / 800
Balance -360 / -360 1040 / 1040 900 / 900
SaO2 96
Nasal Cannula flow liters per 4
minute
Physical Exam
General: Respiratory Distress (n) and Comfortable
HEENT: Normocephalic and Anicteric
Cardiovascular: S1-S2 and Peripheral Edema (negative)
Respiratory: Wheeze (negative), Crackles (negative), Rhonchi (negative) and Other (reduced breath sounds b/l)
GI: Soft, Non Distended, Non Tender and Normal Bowel Sounds
Neurology: Awake and Alert
Skin: Warm and Dry
Labs/Micro/Reports
Lab Data
06/13/23 07:01
06/13/23 07:01
Microbiology
06/08/23 16:55 Blood/Venous Blood Culture - Final
No Growth - Final Report
[2023-06-13 16:31] VITALS: BP 164/72
[2023-06-13] MEDS: LIPITOR 20 MG PO (17:51)
[2023-06-13 19:10] VITALS: BP 150/66
[2023-06-13] MEDS: ARICEPT 10 MG PO (20:44)
[2023-06-13 23:35] VITALS: BP 146/72
[2023-06-14] VITALS (8 sets, daily range): BP systolic 139–181; BP diastolic 55–81; PULSE 71; O2SAT 93
--- NOTE | 2023-06-14 00:04 | PTCARENOTE ---
Patient insistent on using purewick overnight for stress incontinence with coughing. Patient educated multiple times this shift prior to placement on appropriate use of purewick and encouraged to use bathroom if able. Patient states 'No, it is not
my home environment, I am sure you can understand that. I don't want to use the bathroom here, I would rather use the wick tonight so I can sleep and not wake up soaking wet.' Patient verbalizes understanding on risks of using purewick.
[2023-06-14] MEDS: DUONEB 3 ML INH ×3 (07:47→20:09)
[2023-06-14] MEDS: SYMBICORT 160/4.5 MCG INHALER 2 PUFF INH ×2 (07:48→20:09)
[2023-06-14] MEDS: HEPARIN 5000 UNITS SC ×2 (08:35→21:01)
[2023-06-14] MEDS: CELEXA 20 MG PO (08:35)
[2023-06-14] MEDS: ZESTRIL 10 MG PO (08:35)
[2023-06-14] MEDS: ORETIC 12.5 MG PO (08:35)
[2023-06-14] MEDS: CLARITIN 10 MG PO (08:35)
[2023-06-14] MEDS: PROTONIX 40 MG PO (08:35)
[2023-06-14] MEDS: DECADRON 2 MG IV ×2 (12:07→23:58)
[2023-06-14] MEDS: FLUSH (NSS) 2 FLUSH IV (12:08)
[2023-06-14] MEDS: ROBITUSSIN DM 10 ML PO (12:22)
--- NOTE | 2023-06-14 12:49 | W.PN.HOSP.TC ---
Today's Communication/Plan
-
continue IV steroids, mucolytics
Assessment / Plan
Assessment / Plan
77-year-old female past medical history of COPD on 4 L at baseline, alpha-1 antitrypsin deficiency, hypertension, hypercholesterolemia presented with worsening productive cough and shortness of breath over the past week.� Denied to chest pain,
fevers or chills.� She states that one of her inhalers was recently removed due to overlap with [employer].
She is a former smoker.� She drinks 2 to 3 glasses of wine every night but has not had a drink in a few days.
Assessment:
Acute COPD exacerbation from acute tracheobronchitis
Acute on chronic hypoxic respiratory failure
History of alpha-1 antitrypsin deficiency
Former smoker
- 15L now down to 4L; baseline is 4L NC
- continue IV steroids per Pulmonary
- nebs scheduled and prn
- completed 5 day doxycycline course
- mucolytics, aspiration precautions, IS/Acapella
Essential hypertension
- continue lisinopril/hydrochlorothiazide
Hypercholesterolemia
- continue statin
Anxiety/depression
- continue citalopram
- continue Ativan as needed
Dementia
- continue donepezil
GERD
- continue Protonix
Mild Protein Calorie Malnutrition of acute illness
DVT ppx: SC heparin
Code: Full
Anticipated Discharge: 24 - 48 hours
Subjective/Interval History
-
Date of Service: June 14, 2023
reports more congestion, not feeling ready for DC
Objective Data
-
Vital Signs:
Vital Signs
Temp Pulse Resp BP Pulse Ox
97.5 F 66 18 146/70 97
06/14/23 11:02 06/14/23 11:02 06/14/23 11:02 06/14/23 11:02 06/14/23 11:02
I&O
06/13/23 06/14/23 06/15/23
06:59 06:59 06:59
Intake Total 1840 / 1840 1430 / 1430
Output Total 800 / 800 350 / 350
Balance 1040 / 1040 1080 / 1080
Physical Exam
-
General: No Apparent Distress
HEENT: Normocephalic and Atraumatic
Respiratory: Wheezes (congested breaths), Decreased Breath Sounds and Chest Tubes
Cardiac: Regular Rhythm and S1/S2
GI: Soft
Genito-urinary: No Costovertebral Tender
Neuro: AO x 3
Psych: Calm
Data Reviewed
-
Total Time Spent with Patient (in minutes): 42
Labs: Labs Reviewed by me
--- NOTE | 2023-06-14 15:01 | W.PN.PUL3 ---
Today's Communication / Plan
-
Start OCS taper tomorrow
Continue nebulizer therapy
Continue antibiotics
Continue oxygen therapy
Secretion clearance interventions
Hopefully discharge in the next 1-2 days if continues to improve and she remains stable - she is ok with this plan despite her anxiery with going home and fear of having to come back to hospital
Outpatient pulmonary follow-up will be arranged for the patient.
Assessment
-
77-year-old with history of COPD, alpha-1 antitrypsin deficiency, not followed in our office. Came with shortness of breath, wheezing and chest congestion. Consistent with acute exacerbation of COPD.
Acute exacerbation of COPD-acute tracheobronchitis
Chest x-ray 06/08/2023: Reviewed, showed no acute abnormalities.
Negative influenza/negative COVID
Normal procalcitonin
Normal troponins as well as proBNP.
-
COPD
Chronic respiratory failure with hypoxemia up to 4 L
Alpha-1 antitrypsin deficiency on augmentation
Hypercholesterolemia
Hypertension
Anxiety/depression
Dementia
GERD
-
Assessment and plan:
-
Clinical picture consistent with acute exacerbation of COPD
Continues to cough with scant sputum produced
Ok to start weaning steroids now -->tomorrow I will start to wean down to OCS starting with prednisone 50mg daily x 3 days and wean by 10mg every 4th day until off.
Continue with current care:
Nebulizers: DuoNebs TID
Usually on Breztri - ok with Symbicort while in hospital.
s/p 5.5 days of antibiotics for bronchitis-doxycycline.
Obtain sputum culture- she provided a sample today (06/14/2023)
Influenza negative
COVID-negative
Chronic hypoxemic respiratory failure: Usually on 4 L. Currently at baseline. Improved since admission.
Mucolytics
Aspiration precautions
Acapella device, encourage.
Increase activity as able
-
Monitor blood sugars with goal BG 140-180mg/dL
Insulin SQ as needed.
-
Patient states that she would like to transfer care to [facility].
Information will be left in the chart for follow-up.
-
She will continue with IV infusions for alpha 1 antitrypsin augmentation in the outpatient setting.
-
She also states that her daughter and granddaughter have Brugada syndrome.
Her EKG showed normal sinus rhythm. Left axis deviation. No evidence for right bundle branch block or Brugada type pattern.
She will need outpatient evaluation
-
DVT prophylaxis with heparin.
Hopefully discharge over next 1-2 days if she feels well on PO steroid taper as above.
Pulmonary service will continue to follow along while she remains inpatient.
Subjective Data
-
Date of Service:
Date of Service: June 14, 2023
Chief Complaint: Pulmonary Follow Up (Acute exacerbation of COPD/tracheobronchitis)
Subjective:
Pt seen today. Continues to have dry cough. She is nervous going home, thinks she wont be ok breathing-taylor. SHe is currently saturating 96% on 4L/min. She endorses dry cough, albeit sometimes wet with difficulty expectorating. Has frequent
coughing spells. Denies chest pain, QUINONEZ, abd pain, N/V/f/c. She is able to ambulate around her room without significant SOB.
Review of Systems
General: Other (negative unless mentioned above)
Objective Data
Data Reviewed
Vital Signs / I&O / Oxygen:
Vital Signs
Temp Pulse Resp BP Pulse Ox
97.8 F 67 18 145/73 95
06/14/23 15:04 06/14/23 15:04 06/14/23 15:04 06/14/23 15:04 06/14/23 15:04
Intake and Output
06/13/23 06/14/23 06/15/23
06:59 06:59 06:59
Intake Total 1840 / 1840 1430 / 1430
Output Total 800 / 800 350 / 350
Balance 1040 / 1040 1080 / 1080
SaO2 95
Nasal Cannula flow liters per 4
minute
Physical Exam
General: Respiratory Distress (n) and Comfortable
HEENT: Normocephalic and Anicteric
Cardiovascular: S1-S2 and Peripheral Edema (negative)
Respiratory: Wheeze (heard in left anterior lung field during expiration), Crackles (negative), Rhonchi (heard bilaterally upon expiration) and Other (reduced breath sounds b/l)
GI: Soft, Non Distended, Non Tender and Normal Bowel Sounds
Neurology: AO x 3 and Tremors (negative)
Skin: Warm and Dry
Labs/Micro/Reports
Lab Data
06/13/23 07:01
06/13/23 07:01
Microbiology
06/10/23 Unknown Sputum Gram Stain - Preliminary
06/08/23 16:55 Blood/Venous Blood Culture - Final
No Growth - Final Report
[2023-06-14] MEDS: LIPITOR 20 MG PO (17:32)
[2023-06-14] MEDS: MOTRIN 600 MG PO (19:24)
[2023-06-14] MEDS: ARICEPT 10 MG PO (21:01)
[2023-06-14] MEDS: ATIVAN 0.5 MG PO (21:11)
[2023-06-15] VITALS (8 sets, daily range): BP systolic 107–180; BP diastolic 62–81; PULSE 76; O2SAT 94
[2023-06-15] MEDS: DUONEB 3 ML INH ×3 (07:16→19:36)
[2023-06-15] MEDS: SYMBICORT 160/4.5 MCG INHALER 2 PUFF INH ×2 (07:16→19:35)
[2023-06-15] MEDS: CLARITIN 10 MG PO (08:09)
[2023-06-15] MEDS: CELEXA 20 MG PO (08:09)
[2023-06-15] MEDS: DELTASONE 50 MG PO (08:09)
[2023-06-15] MEDS: ZESTRIL 10 MG PO (08:10)
[2023-06-15] MEDS: PROTONIX 40 MG PO (08:10)
[2023-06-15] MEDS: HEPARIN 5000 UNITS SC ×2 (08:10→21:02)
[2023-06-15] MEDS: ORETIC 12.5 MG PO (08:10)
--- NOTE | 2023-06-15 09:34 | W.PN.HOSP.TC ---
Today's Communication/Plan
-
see A/P
Assessment / Plan
Assessment / Plan
77-year-old female past medical history of COPD on 4 L at baseline, alpha-1 antitrypsin deficiency, hypertension, hypercholesterolemia; presented with worsening productive cough and shortness of breath over the past week [employer].� Denied to chest pain,
fevers or chills.� She stated that one of her inhalers was recently removed due to overlap with [employer].
She is a former smoker.� She drinks 2 to 3 glasses of wine every night but has not had a drink in a few days.
Assessment:
# Acute COPD exacerbation from acute tracheobronchitis
# Acute on chronic hypoxic respiratory failure
# History of alpha-1 antitrypsin deficiency
# Former smoker
15L now down to 4L; baseline is 4L NC
IV steroid -> PO prednisone with taper per Pulmonary
nebs scheduled and prn
completed 5 day doxycycline course
mucolytics, aspiration precautions, IS/Acapella
Pulm on board
# Essential hypertension
continue lisinopril/hydrochlorothiazide
Add Norvasc 5 mg for better BP control
# Hypercholesterolemia
continue statin
# Anxiety/depression
continue citalopram
continue Ativan as needed
# Dementia
continue donepezil
# GERD
continue Protonix
# Mild Protein Calorie Malnutrition of acute illness
DVT ppx: SC heparin
Code: Full
PT OT recc HH
Anticipated Discharge: 24 - 48 hours
Subjective/Interval History
-
Date of Service: June 15, 2023
Objective Data
-
Vital Signs:
Vital Signs
Temp Pulse Resp BP Pulse Ox
36.3 C 60 18 180/69 99
06/15/23 07:00 06/15/23 08:10 06/15/23 07:19 06/15/23 08:10 06/15/23 07:19
I&O
06/14/23 06/15/23 06/16/23
06:59 06:59 06:59
Intake Total 1430 / 1430 700 / 700
Output Total 350 / 350 1250 / 1250
Balance 1080 / 1080 -550 / -550
--- NOTE | 2023-06-15 10:01 | W.PN.PUL.V3 ---
Today's Communication / Plan
-
Prednisone 50 mg
If still wheezing or deteriorating tomorrow will modify
Nebulizers
Mucolytic's
Increase activity
Outpatient alpha 1 antitrypsin augmentation
Assessment
-
77-year-old with history of COPD, alpha-1 antitrypsin deficiency, not followed in our office. Came with shortness of breath, wheezing and chest congestion. Consistent with acute exacerbation of COPD.
Acute exacerbation of COPD-acute tracheobronchitis
Chest x-ray 06/08/2023: Reviewed, showed no acute abnormalities.
Negative influenza/negative COVID
Normal procalcitonin
Normal troponins as well as proBNP.
-
COPD
Chronic respiratory failure with hypoxemia up to 4 L
Alpha-1 antitrypsin deficiency on augmentation
Hypercholesterolemia
Hypertension
Anxiety/depression
Dementia
GERD
-
Plan
Respiratory status still somewhat tenuous with ongoing wheezing and increased FiO2 requirements
Attempt to wean FiO2
DuoNebs 3 times daily
Symbicort continues
Home medication Breztri
Prednisone 50 mg with slow taper-if wheezing increases then may need to resume intravenous steroids-reviewed with primary team
Mucolytic's
Mucus clearing devices
Outpatient alpha 1 antitrypsin augmentation
Cultures reviewed
Influenza and covid negative
Sputum culture if able
Status post 5 days doxycycline
Monitor blood sugar
Insulin subcutaneously if needed
She states that her daughter and granddaughter have Brugada syndrome.
Her EKG showed normal sinus rhythm. Left axis deviation. No evidence for right bundle branch block or Brugada type pattern.
She will need outpatient evaluation
DVT prophylaxis-on heparin
Outpatient pulmonary [id number] like transfer of care care local
Subjective Data
-
Date of Service:
Date of Service: June 15, 2023
Chief Complaint: Pulmonary Follow Up (Acute exacerbation of COPD/tracheobronchitis) and Dyspnea Follow Up
Subjective:
Still with some shortness of breath, still with some wheezing, no chest pain or abdominal pain
Review of Systems
General: Other (Per HPI)
Objective Data
Data Reviewed
Vital Signs / I&O:
Vital Signs
Temp Pulse Resp BP Pulse Ox
97.4 F 60 18 180/69 96
06/15/23 07:00 06/15/23 08:10 06/15/23 07:19 06/15/23 08:10 06/15/23 09:47
Intake and Output
06/14/23 06/15/23 06/16/23
06:59 06:59 06:59
Intake Total 1430 / 1430 700 / 700
Output Total 350 / 350 1250 / 1250
Balance 1080 / 1080 -550 / -550
SaO2: 96
Nasal Cannula flow liters per minute: 4
Physical Exam
General: Respiratory Distress (n) and Comfortable
HEENT: Normocephalic and Anicteric
Cardiovascular: S1-S2 and Peripheral Edema (negative)
Respiratory: Wheeze (heard in left anterior lung field during expiration), Crackles (negative), Rhonchi (heard bilaterally upon expiration) and Other (reduced breath sounds b/l)
GI: Soft, Non Distended, Non Tender and Normal Bowel Sounds
Neurology: AO x 3 and Tremors (negative)
Skin: Warm and Dry
Labs/Micro/Reports
Lab Data
06/13/23 07:01
06/13/23 07:01
Microbiology
06/10/23 Unknown Sputum Respiratory Culture - Preliminary
06/10/23 Unknown Sputum Gram Stain - Preliminary
06/08/23 16:55 Blood/Venous Blood Culture - Final
No Growth - Final Report
[2023-06-15] MEDS: NORVASC 5 MG PO (10:02)
[2023-06-15] MEDS: MOTRIN 600 MG PO (10:03)
[2023-06-15] MEDS: TESSALON PERLES 200 MG PO (10:04)
--- NOTE | 2023-06-15 15:07 | VNURNOTE ---
Home Health Liaison met with patient at 1300 to discuss [facility] nurse/therapy, visits, schedule and homebound status. Patient is agreeable and understands that visits at home will be 2-3 x per week to assess and teach medical management.
[facility] brochure provided with contact information. Patient is aware that [facility] will contact her for start of care in 1-2 days after discharge from .
[facility] referral completed and previously accepted in [facility].
--- NOTE | 2023-06-15 16:56 | CM ---
Reviewed chart, patient will go home with VN services.
Plan: Case management will continue to follow and assist with discharge planning/home with VN through .
[2023-06-15] MEDS: LIPITOR 20 MG PO (17:22)
[2023-06-15] MEDS: ARICEPT 10 MG PO (21:03)
[2023-06-15] MEDS: PHENERGAN WITH CODEINE SYRUP 5 ML PO (21:17)
[2023-06-15] MEDS: ATIVAN 0.5 MG PO (21:17)
[2023-06-16 03:35] VITALS: BP 133/89
[2023-06-16 06:55] LABS: Hematocrit 41.1 % (37.0-47.0); Hemoglobin 13.6 g/dL (12.0-16.0); Mean Corp Hgb Conc. 33.1 g/dL (33.0-37.0); Mean Corpuscular Hgb 31.3 pg (27.0-31.0); Mean Corpuscular Volume 94.7 fL (81.0-99.0); Mean Platelet Volume 10.8 fL (7.4-10.4); Platelet Count 331 10^3/uL (130-400); Red Blood Cell Count 4.34 10^6/uL (4.20-5.40); Red Cell Dist. Width 12.5 % (11.5-14.5); White Blood Cell Count 15.8 10^3/uL (4.8-10.8)
[2023-06-16 07:00] VITALS: BP 107/78
[2023-06-16 07:22] LABS: Blood Urea Nitrogen 32 mg/dl (7-17); Carbon Dioxide 36 mmol/L (22-30); Chloride 96 mmol/L (98-107); Estimated Creatinine Clearance 61 ml/min; Glucose 114 mg/dl (70-99); Magnesium 2.3 mg/dl (1.6-2.3); Potassium 4.9 mmol/L (3.5-5.1); Sodium 135 mmol/L (135-145); eGFR > 60.00
[2023-06-16] MEDS: DELTASONE 50 MG PO (07:58)
[2023-06-16] MEDS: ORETIC 12.5 MG PO (07:58)
[2023-06-16] MEDS: CELEXA 20 MG PO (07:58)
[2023-06-16] MEDS: HEPARIN 5000 UNITS SC (07:58)
[2023-06-16] MEDS: TESSALON PERLES 200 MG PO (07:58)
[2023-06-16] MEDS: CLARITIN 10 MG PO (07:58)
[2023-06-16] MEDS: PROTONIX 40 MG PO (07:58)
[2023-06-16] MEDS: ZESTRIL 10 MG PO (07:58)
[2023-06-16] MEDS: NORVASC 5 MG PO (07:59)
[2023-06-16] MEDS: DUONEB 3 ML INH ×2 (08:16→13:05)
[2023-06-16] MEDS: SYMBICORT 160/4.5 MCG INHALER 2 PUFF INH (08:17)
[2023-06-16 10:25] VITALS: BP 106/72; PULSE 68; O2SAT 96
--- NOTE | 2023-06-16 10:26 | W.PN.HOSP.TC ---
Addendum entered and electronically signed by Namrata Estrella MD 06/16/23 13:01:
total DC time 35 min
Original Note:
Today's Communication/Plan
-
see A/P
Assessment / Plan
Assessment / Plan
77-year-old female past medical history of COPD on 4 L at baseline, alpha-1 antitrypsin deficiency, hypertension, hypercholesterolemia; presented with worsening productive cough and shortness of breath over the past week [employer].� Denied to chest pain,
fevers or chills.� She stated that one of her inhalers was recently removed due to overlap with [employer].
She is a former smoker.� She drinks 2 to 3 glasses of wine every night but has not had a drink in a few days.
Assessment:
# Acute COPD exacerbation from acute tracheobronchitis
# Acute on chronic hypoxic respiratory failure
# History of alpha-1 antitrypsin deficiency
# Former smoker
15L now down to 4L; baseline is 4L NC
IV steroid -> PO prednisone with taper per Pulmonary, start with 50 mg and decrease 10 mg every 3 days until off.
nebs scheduled and prn
Will send home with nebulizer script and Duoneb
completed 5 day doxycycline course
mucolytics, aspiration precautions, IS/Acapella
Pulm on board
# Essential hypertension
continue lisinopril/hydrochlorothiazide
Added Norvasc for better BP control , will not continue upon discharge
Recc outpt BP monitoring with PCP
# Hypercholesterolemia
continue statin
# Anxiety/depression
continue citalopram
continue Ativan as needed
# Dementia
continue donepezil
# GERD
continue Protonix
# Mild Protein Calorie Malnutrition of acute illness
DVT ppx: SC heparin
Code: Full
PT OT recc HH
DW Pulm Dr Lara. Agreed with discharge today
Anticipated Discharge: Today
Subjective/Interval History
-
Date of Service: June 16, 2023
Objective Data
-
Labs:
Laboratory Results
06/16/23
06:11
WBC 15.8 H
Hgb 13.6
Hct 41.1
Plt Count 331
Sodium 135
Potassium 4.9
Chloride 96 L
Carbon Dioxide 36 H
BUN 32 H
Creatinine 0.9
Glucose 114 H
Calcium 9.0
Vital Signs:
Vital Signs
Temp Pulse Resp BP Pulse Ox
36.4 C 75 16 107/78 96
06/16/23 07:00 06/16/23 08:17 06/16/23 08:17 06/16/23 07:00 06/16/23 08:45
I&O
06/15/23 06/16/23 06/17/23
06:59 06:59 06:59
Intake Total 700 / 700 1080 / 1080
Output Total 1250 / 1250 1350 / 1350
Balance -550 / -550 -270 / -270
Review of Systems
-
All other systems: Reviewed and negative
Physical Exam
-
General: Well Developed, Well Nourished, Comfortable, Respiratory Distress (chronic) and Conversant
HEENT: Normocephalic and Atraumatic
Respiratory: Non Labored Respirations and Decreased Breath Sounds; Negative Accessory Resp Muscle Use
Cardiac: Regular Rhythm and S1/S2
GI: Soft, Nontender and Nondistended
Neuro: Awake and Alert
Psych: Calm and Intact Judgement/Insight
Data Reviewed
-
Labs: Labs Reviewed by me
--- NOTE | 2023-06-16 10:51 | W.PN.PUL.V3 ---
Today's Communication / Plan
-
Slow prednisone taper.
Oxygen 4 L..
Status post antibiotics.
Stable for discharge with pulmonary follow-up
Assessment
-
77-year-old with history of COPD, alpha-1 antitrypsin deficiency, not followed in our office. Came with shortness of breath, wheezing and chest congestion. Consistent with acute exacerbation of COPD.
Acute exacerbation of COPD-acute tracheobronchitis
Chest x-ray 06/08/2023: Reviewed, showed no acute abnormalities.
Negative influenza/negative COVID
Normal procalcitonin
Normal troponins as well as proBNP.
-
COPD
Chronic respiratory failure with hypoxemia up to 4 L
Alpha-1 antitrypsin deficiency on augmentation
Hypercholesterolemia
Hypertension
Anxiety/depression
Dementia
GERD
-
Plan
.
Her respiratory status is finally improving
Attempt to wean FiO2-currently on 4 L-this is what she is on at home
DuoNebs 3 times daily
Symbicort continues
Note her home inhalers Breztri
Prednisone 50 mg with slow taper
Mucolytic's
Mucus clearing devices
Outpatient alpha 1 antitrypsin augmentation
Cultures reviewed
Influenza and covid negative
Sputum culture if able
Status post 5 days doxycycline
Monitor blood sugar
Insulin subcutaneously if needed
She states that her daughter and granddaughter have Brugada syndrome.
Her EKG showed normal sinus rhythm. Left axis deviation. No evidence for right bundle branch block or Brugada type pattern.
She will need outpatient evaluation
DVT prophylaxis-on heparin
Outpatient pulmonary [id number] like transfer of care care local
Subjective Data
-
Date of Service:
Date of Service: June 16, 2023
Chief Complaint: Pulmonary Follow Up (Acute exacerbation of COPD/tracheobronchitis) and Dyspnea Follow Up
Subjective:
Anxious for discharge, on 4 L at home, overall feels better, still has some wheezing, no chest pain or abdominal pain
Review of Systems
General: Other ( per HPI )
Objective Data
Data Reviewed
Vital Signs / I&O:
Vital Signs
Temp Pulse Resp BP Pulse Ox
97.6 F 75 16 107/78 96
06/16/23 07:00 06/16/23 08:17 06/16/23 08:17 06/16/23 07:00 06/16/23 08:45
Intake and Output
06/15/23 06/16/23 06/17/23
06:59 06:59 06:59
Intake Total 700 / 700 1080 / 1080
Output Total 1250 / 1250 1350 / 1350
Balance -550 / -550 -270 / -270
SaO2: 96
Nasal Cannula flow liters per minute: 4
Physical Exam
General: Respiratory Distress (n) and Comfortable
HEENT: Normocephalic and Anicteric
Cardiovascular: S1-S2 and Peripheral Edema (negative)
Respiratory: Wheeze (heard in left anterior lung field during expiration), Crackles (negative), Rhonchi (heard bilaterally upon expiration) and Other (reduced breath sounds b/l)
GI: Soft, Non Distended, Non Tender and Normal Bowel Sounds
Neurology: AO x 3 and Tremors (negative)
Skin: Warm and Dry
Labs/Micro/Reports
Lab Data
06/16/23 06:11
06/16/23 06:11
Microbiology
06/10/23 Unknown Sputum Respiratory Culture - Final
Usual Respiratory Marguerite
06/10/23 Unknown Sputum Gram Stain - Final
06/08/23 16:55 Blood/Venous Blood Culture - Final
No Growth - Final Report
[2023-06-16 11:00] VITALS: BP 161/69
--- NOTE | 2023-06-16 11:12 | CM ---
Confirmation was obtained by [facility] liason that patient is set up. Notified her of d/c today.
Plan: Case management will continue to follow and assist with discharge planning. Home with VN services.
--- NOTE | 2023-06-16 12:47 | W.DCSUMMARY ---
Discharge Summary
Discharge Data
Date of Admission: 06/08/23
Date of Discharge: 06/16/23
-
Pending Results: No
Hospital Course
Principal Diagnosis:
Acute chronic obstructive pulmonary disease (COPD) exacerbation from acute tracheobronchitis
Acute on chronic hypoxic respiratory failure
Chronic Diagnoses:�
History of alpha-1 antitrypsin deficiency
Former smoker
Essential hypertension, on Lisinopril/hydrochlorothiazide
Hypercholesterolemia
Anxiety/depression on citalopram
Dementia, on donepezil
GERD
Consultations:�
Pulmonary
Procedures:�
None
Clinical course:�
This is a 77-year-old female with past medical history as stated above, who presented with worsening productive cough and shortness of breath over the past week prior to admission.
Problem 1:
Acute COPD exacerbation from acute tracheobronchitis.
This was associated with acute on chronic hypoxic respiratory failure.
The patient initially required oxygen support at 15 L, and this was slowly weaned back to 4 L which is at her baseline home O2 requirement.
She was treated with IV steroid initially, and this was transitioned to oral prednisone with tapering per pulmonary. She received prednisone 50 mg x 2 doses while in the hospital, and can continue with 1 more dose, then start 40 mg daily for 3 days,
and decrease 10 mg every 3 days until off.
She was also treated with DuoNebs, and was given a prescription for a nebulizer machine with DuoNeb prescription for continued home use.
She completed 5 day doxycycline course while in the hospital.
She can continue to follow-up with pulmonary outpatient.
As for the rest of her medical problems, they were stable during her hospital stay.
Discharge Plan
-
Patient Disposition: Home with Home Care
Discharge Diagnosis/Procedures: Acute COPD exacerbation from acute tracheobronchitis; Acute on chronic hypoxic respiratory failure
Condition: Fair
Diet: As tolerated
Activity: As tolerated
Driving Restrictions: As prior to admission
Activity Restrictions/Additional Instructions:
Follow up with your PCP for continued blood pressure monitoring
Referrals:
Alex Mallory MD [Family Provider] -
Edinson Odell MD [Active] - in two weeks (May see [facility]ICAL [facility]EARCHER)
Additional Discharge Medication Instructions: Continue prednisone with taper: take 50 mg for 1 more day, then 40 mg for 3 days and decrease 10 mg every 3 days until off.
Prescriptions:
New
Chloraseptic Sore Throat 6-10 mg Lozenge
1 kamini PO Q4HPRN PRN (Reason: sore throat and cough) Qty: 18 0RF
ipratropium-albuterol 0.5 mg-3 mg(2.5 mg base)/3 mL Solution For Nebulization
3 ml inhalation R TID Qty: 180 0RF
Patient Comments:
USE NEEDED FOR SHORTNESS OF BREATH OR WHEEZING WHEN HOME
prednisone 10 mg Tablet
See Rx Instructions .ROUTE .COMPLEX Qty: 45 0RF
Rx Instructions:
50 mg daily x1 day, 40 mg daily x3 days,
30 mg daily x3 days, 20 mg daily x3 days,
10 mg daily x3 days
Continued
promethazine-DM 6.25-15 mg/5 mL syrup
5 ml PO QID PRN (Reason: cough)
donepezil 10 mg tablet
10 mg PO HS
simvastatin 40 mg tablet
40 mg PO QPM
citalopram 20 mg tablet
20 mg PO DAILY
lorazepam 0.5 mg tablet
0.5 mg PO DAILY PRN (Reason: anxiety)
Patient Comments:
06/08/2023: last filled 04/17/23, 90 tabs for 90 days from [facility]
pantoprazole 40 mg tablet,delayed release (DR/EC)
40 mg PO DAILY
lisinopril-hydrochlorothiazide 10-12.5 mg tablet
1 tab PO DAILY
ibuprofen 600 mg Tablet
600 mg PO Q8H PRN (Reason: mild pain)
albuterol sulfate 90 mcg/actuation HFA aerosol inhaler
2 puff INHALATION R Q4HPRN PRN (Reason: SOB OR WHEEZING WHEN OUT OF HOUSE)
Patient Comments:
06/08/2023: Prescribed as 2 puff INH R Q4h
clobetasol 0.05 % Lotion
1 applic TOPICAL WEEKLY
Rx Instructions:
apply to scalp and brows
Glassia 1 gram/50 mL (2 %) Solution
5.418 g IV TH
diphenhydramine-0.9 % sod.chlr 50 mg/50 mL Piggyback
50 mg IV TH
Breztri Aerosphere 160-9-4.8 mcg/actuation HFA aerosol inhaler
2 inh INHALATION R BID
Discontinued
paroxetine HCl 20 mg Tablet
20 mg PO DAILY
Discharge Orders:
Discharge Patient (As Directed); Ordered 06/16/23
Ordered By: Namrata Estrella
== END 2023-06-16 14:02 | disposition home health service (06) | DRG 190 ==
LOC: 3 WEST ACU 19:58
PROVIDERS: Emergency Medicine; Internal Medicine; ADMITTING PHYSICIAN Hospitalist; ATTENDING PHYSICIAN Internal Medicine; CONSULT PHYSICIAN Internal Medicine Critical Care Medicine; EMERGENCY PHYSICIAN Emergency Medicine; FAMILY PHYSICIAN Family Medicine
DX: J44.1 Chronic obstructive pulmonary disease with (acute) exacerbation (principal); J96.21 Acute and chronic respiratory failure with hypoxia; F03.93 Unspecified dementia, unspecified severity, with mood disturbance; F03.94 Unspecified dementia, unspecified severity, with anxiety; E44.1 Mild protein-calorie malnutrition; J44.0 Chronic obstructive pulmonary disease with (acute) lower respiratory infection; Z87.891 Personal history of nicotine dependence; E88.01 Alpha-1-antitrypsin deficiency; I10 Essential (primary) hypertension; E78.00 Pure hypercholesterolemia, unspecified; F32.A Depression, unspecified; K21.9 Gastro-esophageal reflux disease without esophagitis; J20.9 Acute bronchitis, unspecified; Z68.31 Body mass index [BMI] 31.0-31.9, adult
CPT/HCPCS: 71046; 80048; 80053; 83605; 83735; 83880; 84145; 84484; 85025; 85027; 87040; 87070; 87205; 87502; 87811; 93005; 94640; 94667; 94668; 96374; 97110; 97116; 97162; 97166; 97535; 99285

== ENCOUNTER → 2023-12-28 12:50 | Outpatient (REF) | payer MEDICARE, OTHER, SELFPAY | LOC: HWRAD 12:50 | PROVIDERS: ATTENDING PHYSICIAN Obstetrics & Gynecology; FAMILY PHYSICIAN Family Medicine | DX: N95.0 Postmenopausal bleeding (principal) | CPT/HCPCS: 76830; 76856 ==

== ENCOUNTER 2024-03-07 06:25 | Day surgery (SDC) | payer MEDICARE, OTHER, SELFPAY ==
[2024-02-22 13:39] VITALS: BMI 32.2
[2024-03-07] VITALS (8 sets, daily range): BP systolic 120–157; BP diastolic 51–70; BMI 32.2
[2024-03-07] MEDS: DILAUDID 0.25 MG IV (10:26)
--- NOTE | 2024-03-07 11:54 | SUR.PHASEI ---
Dr Schulz visited in pacu - patient told need to wait for pathology results, medicated x1 with dilaudid 0.25mg with relief and warm blanket to abdomen for cramping comfortable at 11:15. vss. Wears O2 at 4l/m nasal - continuous at home - discharge to
SDS with O2.
== END 2024-03-07 12:20 | disposition home or self-care (01) ==
LOC: SDS 06:25
PROVIDERS: ATTENDING PHYSICIAN Obstetrics & Gynecology; FAMILY PHYSICIAN Family Medicine
DX: C54.1 Malignant neoplasm of endometrium (principal); N95.0 Postmenopausal bleeding; Z17.0 Estrogen receptor positive status [ER+]
CPT/HCPCS: 58558; 88305; 88341; 88342; 88360

== ENCOUNTER → 2024-04-28 16:27 | Outpatient (REF) | payer MEDICARE, OTHER, SELFPAY | LOC: RAD 16:27 | PROVIDERS: ATTENDING PHYSICIAN Obstetrics & Gynecology Gynecologic Oncology; FAMILY PHYSICIAN Family Medicine | DX: C54.1 Malignant neoplasm of endometrium (principal); Z12.4 Encounter for screening for malignant neoplasm of cervix; J44.9 Chronic obstructive pulmonary disease, unspecified | CPT/HCPCS: 71260; 74177; Q9967 ==

== ENCOUNTER → 2024-06-04 11:11 | Outpatient (REF) | payer MEDICARE, OTHER, SELFPAY | LOC: RCS 11:11 | PROVIDERS: ATTENDING PHYSICIAN Nurse Practitioner Family; FAMILY PHYSICIAN Family Medicine | DX: R06.02 Shortness of breath (principal) | CPT/HCPCS: 93306 ==

== ENCOUNTER → 2025-02-23 16:47 | Outpatient (REF) | payer MEDICARE, OTHER, SELFPAY | LOC: RAD 16:47 | PROVIDERS: ATTENDING PHYSICIAN Physician Assistant Surgical; FAMILY PHYSICIAN Family Medicine | DX: C54.1 Malignant neoplasm of endometrium (principal); Z12.4 Encounter for screening for malignant neoplasm of cervix; J44.9 Chronic obstructive pulmonary disease, unspecified; R91.1 Solitary pulmonary nodule | CPT/HCPCS: 71260; 74177; Q9967 ==

== ENCOUNTER → 2025-03-20 14:12 | Outpatient (REF) | payer MEDICARE, OTHER, SELFPAY | LOC: HWRAD 14:12 | PROVIDERS: ATTENDING PHYSICIAN Internal Medicine Hematology & Oncology; FAMILY PHYSICIAN Family Medicine | DX: C54.1 Malignant neoplasm of endometrium (principal); Z12.4 Encounter for screening for malignant neoplasm of cervix; J44.9 Chronic obstructive pulmonary disease, unspecified; R91.1 Solitary pulmonary nodule | CPT/HCPCS: 76700 ==